=== PATIENT | male | born 1985 | race Caucasian/White ===

== ENCOUNTER 2022-11-18 11:53 | Emergency (ER) | payer OTHER, SELFPAY ==
[2022-11-18 11:54] VITALS: BP 160/70; PULSE 94; RESP 14; TEMP 37.1; O2SAT 98; BMI 28.8
[2022-11-18 11:57] VITALS: BP 159/100
--- NOTE | 2022-11-18 12:08 | EX.ED.DYSGE1 ---
HPI History of Present Illness Chief Complaint: Syncope Informant: patient Onset/Context/Timing Onset: Today Current Severity: Gone Maximum Severity: Mild Narrative Narrative: 37-year-old male no stated past medical or surgical history. Currently is on no medications. Denies any recent illness. He was having a conversation with someone that he felt his heart speed up for about 2 to 3 seconds he felt lightheaded and got a dry mouth and it all resolved. Denies any loss of conscious. He did not have a syncopal episode. Really never felt like he was even going to pass out. Denies any nausea, vomiting or diarrhea. No chest pain or shortness of breath. No recent illness. Prior episode 1 time when he had a panic attack. He took his blood pressure where he works it was elevated so they called the squad and he was brought in the emergency department. Currently states he feels very well. Prior similar symptoms: Yes Recent Illness/Hospitalization: No PFSH PFSH Medical History Near syncope no medical history Home Medications NK 11/18/22 [History Last Taken Unknown] Allergy/AdvReac Type Severity Reaction Status Date / Time No Known Allergies Allergy Verified 11/18/22 11:54 Social History Smoking Status: Never smoker ROS ROS ED ROS Narrative Denies recent illness nor weight change. No chest pain or shortness of breath. No palpitations. Review of Systems ROS Unobtainable: Denies due to encephalopathy Constitutional Constitutional ED: Denies chills or fever(s) Eyes Eyes: Denies blurry vision ENT ENT ED: Denies ear pain Cardiovascular Cardiovascular: Denies chest pain Respiratory/Chest Respiratory/Chest: Denies cough Gastrointestinal Gastrointestinal: Denies abdominal pain Genitourinary Genitourinary ED: Denies dysuria Musculoskeletal Musculoskeletal: Denies arthralgias Integumentary Denies abscess Neurologic Neurologic: Denies headache(s) Psychiatric Psychiatric: Denies anxiety or depression Endocrine Endocrinology: Denies cold intolerance Allergic/Immunologic Allergic/Immunologic ED: Denies mouth swelling EXAM Physical Exam Narrative Exam Narrative: Very well-appearing 37-year-old male. Vital signs stable afebrile. Pulse ox 90% on room air no hypoxia. H EENT exam unremarkable. Neck nontender no JVD. Lungs clear to auscultation bilaterally. Heart regular rhythm no murmur. Abdomen soft nontender. Moving all 4 extremities. Nontender no edema. 5 out of 5 offbearer strength. Dorsi and plantarflexion intact. Neurologically is awake and alert with no focal motor deficits. NIH is 0. Answering questions following commands. Fingertip to nose within normal limits. Const Vital Signs: 11/18/22 11:54 11/18/22 11:57 11/18/22 11:58 Temperature 98.7 F Temperature Source Temporal Pulse Rate 94 Respiratory Rate 14 Respiratory Effort Normal Non-Labored Respiratory Pattern Normal Blood Pressure 160/70 H 159/100 H Blood Pressure Mean 100 119 Pulse Ox 98 Oxygen Delivery Method Room Air Positive well nourished and well developed; Negative for obese, cachectic, contractures or unkempt General Appearance ED: well developed and NAD; Negative for unkempt, cachectic, contractures, cyanotic, diaphoretic or pallor Nutritional Appearance: Negative for cachectic or obese HEENT Reports moist mucous membranes; Denies dry mucous membranes Mouth ED: No dry mucous membranes Mouth: No dry mucous membranes Eyes PERRL and EOMs intact bilaterally General Eye ED: Negative for pale conjunctiva or scleral icterus Neck no lymphadenopathy, supple and no JVD General: Negative for tenderness Lymph Lymphatic: Negative for other Chest Wall inspection of chest normal and palpation of chest normal Chest: Negative for other Resp normal respiratory effort and clear to auscultation bilaterally Effort and Inspection: Negative for retractions Auscultation: Negative for rales, rhonchi or wheezes Cardio regular rhythm, S1 normal heart sound, S2 normal heart sound and no murmurs Palpation: Negative for palpable S3 Rate: Negative for bradycardia or tachycardic Rhythm: Negative for abnormal rhythm GI normal to inspection, nondistended, normoactive bowel sounds, non-tender, non-distended and no masses Inspection: Negative for abdominal distention Auscultation: normoactive bowel sounds Palpation: soft; Negative for tender or guarding Back/Spine no CVA tenderness General Back: Negative for CVA tenderness Cervical Spine: Negative for cervical spine tenderness Thoracic Spine / Upper Back: Negative for thoracic spinal tenderness Lumbar Spine / Lower Back: Negative for lumbar spinal tenderness Extremity normal to inspection General Extremety ED: Negative for edema or tenderness General Extremity: Negative for edema Neuro oriented x3, CN's II-XII intact bilaterally and no sensory deficits noted Sensorium / Orientation: alert; Negative for orientation impaired, lethargic or stuporous Motor Exam: strength 5/5 throughout; Negative for general weakness Psych mental status grossly normal Appearance: Negative for unkempt Attitude: No agitated Mood & Affect: Negative for depressed, anxious or tearful Skin no rashes or lesions noted, no wounds and skin turgor normal General Skin Exam: elasticity normal; Negative for jaundice or pallor Lesions: No lesion noted Rashes: No rashes noted Trauma: Negative for abrasion Wounds: Negative for wounds noted MDM MDM MDM Narrative Medical decision making narrative: 37-year-old male had a brief episode where he was not feeling well. Says his heart race for maybe 2 to 3 seconds. He had no chest pain. He feels completely back to normal currently. He did not pass out. He will undergo a cardiac work-up. I suspect we will find much on his labs he has a normal exam will be discharged home. Repeat exam at 1:05 PM patient doing well. We discussed his lab results, EKG and chest x-ray and he will be discharged home with outpatient follow-up as needed. Return if worse. History & Record Review Discussion w/independent historian: EMS personnel and Patient Lab Data Attestation: I reviewed the patient's lab results. Lab results narrative: CBC unremarkable. White count 4.3. H&H 15.7 and 46. Platelets 245. BMP unremarkable. Gap of 7. Normal BUN and creatinine at 10 and 1.2. Glucose 125. Troponin is 3. Labs: Laboratory Results - last 24 hr 11/18/22 11/18/22 12:20 12:20 WBC 4.3 L RBC 5.19 Hgb 15.7 Hct 46.5 MCV 89.6 MCH 30.3 MCHC 33.8 RDW Std Deviation 40.2 RDW Coeff of Isaiah 12.2 Plt Count 245 MPV 9.7 Immature Gran % (Auto) 0.000 Neut % (Auto) 52.5 Lymph % (Auto) 32.9 Traill % (Auto) 9.9 Eos % (Auto) 4.0 Baso % (Auto) 0.7 Absolute Neuts (auto) 2.2 Absolute Lymphs (auto) 1.40 Nucleated RBC % 0 Sodium 140 Potassium 3.5 Chloride 108 H Carbon Dioxide 25.0 Anion Gap 7 BUN 10 Creatinine 1.24 Estim Creat Clear Calc 84.22 Est GFR (MDRD) Af Amer 84 Est GFR (MDRD) Non-Af 70 BUN/Creatinine Ratio 8.1 L Glucose 125 H Calcium 9.2 Troponin I High Sens 3 Radiography Chest X-Ray - ED: 1 View and Read by ED Physician Discharge Plan Triage Chief Complaint: Syncope ED Provider: Mandeep Kendall Dx/Rx/DC Orders Clinical Impression: Near syncope Instructions: ED Palpitations Prescriptions: No Action NK Primary Care Provider: Care Physician,Karen Primary Referrals: Chaim Mcnally MD [Med Staff - Teacher Learning Disabled] - As Needed NOT,DEFINED [Non-Staff] - Activity Restrictions/Additional Instructions: Your labs, EKG and chest x-ray were all unremarkable. They were normal. Make sure you eat today. Plenty of fluids and rest. Follow-up with a local doctor as needed. Return if feeling worse. Disposition Disposition: Home, Self Care
--- NOTE | 2022-11-18 12:15 | EKG12_ITS ---
Test Reason : SYNCOPE Blood Pressure : / mmHG Vent. Rate : 083 BPM Atrial Rate : 083 BPM P-R Int : 124 ms QRS Dur : 090 ms QT Int : 360 ms P-R-T Axes : 038 047 034 degrees QTc Int : 423 ms Normal sinus rhythm with sinus arrhythmia Normal ECG Confirmed by JOLLY OTTO, PABLITO ([id number]), medical transcription editor MONICA CARRASQUILLO ([id number]) on 11/20/2022 8:05:41 AM Referred By: Confirmed By:PABLITO AZEVEDO MD
--- NOTE | 2022-11-18 12:32 | RAD_ITS ---
STUDY: X-RAY CHEST REASON FOR EXAM: Male, 37 years old. chest pain TECHNIQUE: Single AP portable view of the chest. COMPARISON: None. FINDINGS: The lungs are clear and expanded. There is no demonstrated pleural abnormality. Normal size heart. Normal mediastinum and jamia. Normal visualized pulmonary arteries. Normal visualized aortic arch and descending thoracic aorta. Normal visualized thoracic spine. Normal visualized ribs, clavicles, and shoulders. There is no demonstrated abnormality of the visualized soft tissue structures of the upper abdomen. RAD/Chest 1 View (Portable) IMPRESSION: Normal x-ray examination of the chest. Electronically Signed: Alonso Cutler MD at 13:31 EDT ,
[2022-11-18 12:43] LABS: Absolute Neutrophil Count 2.2 X10^3/uL (2.0-7.7); Basophil# 0.03 X10^3/uL; Basophil% 0.7 % (0-1); Eosinophil# 0.17 X10^3/uL; Hematocrit 46.5 % (40-54); Hemoglobin 15.7 g/dL (13.0-16.5); Lymphocyte % 32.9 % (19-41); Mean Corp Hgb Conc 33.8 g/dL (32-36); Mean Corpuscular Hgb 30.3 pg (27.0-32.0); Mean Corpuscular Volume 89.6 fL (80-94); Mean Platelet Vol. 9.7 fl (6.2-12.0); Monocyte# 0.42 X10^3/uL; Monocyte% 9.9 % (0-10); NRBC Flagged by Analyzer 0 % (0-5); Neutrophil # 2.24 X10^3/uL (2.7-7.7); Neutrophil % 52.5 % (47-70); Platelet Count 245 K/mm3 (150-450); RBC Distribution Width CV 12.2 % (11.6-14.6); RBC Distribution Width SD 40.2 fl (35.1-43.9); Red Blood Count 5.19 M/mm3 (4.6-6.2); White Blood Count 4.3 K/mm3 (4.4-11.0)
[2022-11-18 12:58] LABS: Anion Gap 7 (5-15); BUN 10 mg/dL (7-18); BUN/Creat Ratio 8.1 RATIO (10-20); Calcium,Total 9.2 mg/dL (8.5-10.1); Chloride 108 mmol/L (98-107); Creatinine, Serum 1.24 mg/dL (0.70-1.30); EST Glomerular Filtration Rate 70 mL/min (>60); Est Glom Filt Rate - Afr Amer 84 mL/min (>60); Estimated Creatinine Clearance 84.22 ml/min; Glucose 125 mg/dL (74-106); Potassium 3.5 mmol/L (3.5-5.1); Sodium Level 140 mmol/L (136-145); Troponin-I HS 3 pg/mL (3.0-78.0)
[2022-11-18 13:16] VITALS: PULSE 76
== END 2022-11-18 13:17 | disposition home or self-care (01) ==
PROVIDERS: Emergency Provider Emergency Medicine; Visit Provider Emergency Medicine
DX: R55 Syncope and collapse (principal)
CPT/HCPCS: 71045; 80048; 84484; 85025; 93005; 99283; J7030; A4216